=== PATIENT | female | born 1975 | race Two or more races ===

== ENCOUNTER → 2020-05-29 10:25 | Outpatient (CLI) | payer OTHER | END | disposition home or self-care (01) | LOC: PPH VACUNA 10:25 | DX: Z23 Encounter for immunization (principal) ==

== ENCOUNTER 2020-06-19 23:39 | Outpatient (CLI) | payer OTHER | END 2020-06-19 23:40 | disposition home or self-care (01) | LOC: PPH VACUNA 23:39 | DX: Z23 Encounter for immunization (principal) ==

== ENCOUNTER 2020-11-19 09:05 | Outpatient (CLI) | payer OTHER | END 2020-11-19 17:27 | disposition home or self-care (01) | LOC: PPH VACUNA 09:05 | PROVIDERS: ATTEND Emergency Medicine Pediatric Emergency Medicine | DX: Z23 Encounter for immunization (principal) ==

== ENCOUNTER 2022-10-05 04:55 | Day surgery (SDC) | payer OTHER ==
[~2022-10-05] VITALS: Ht 167.6 cm; Wt 150.1 kg
[~2022-10-05 04:55] MED LIST: KEPPRA500 MG PO
== END 2022-10-05 16:50 | disposition home or self-care (01) ==
LOC: CIR.AMB 04:55
PROVIDERS: ATTEND Surgery
DX: K80.10 Calculus of gallbladder with chronic cholecystitis without obstruction (principal); Z20.822 Contact with and (suspected) exposure to COVID-19